=== PATIENT | male | born 1965 | race Caucasian/White ===

== ENCOUNTER 2020-06-20 19:52 | Emergency (ER) | payer MEDICAID, OTHER ==
[2020-06-20] MEDS ORDERED: Lidocaine 1% 10 ML MDV INJECT ONE (20:11)
--- NOTE | 2020-06-20 20:11 | EDM.PDOC ---
ED HPI GENERAL MEDICAL PROBLEM - General Chief Complaint: Laceration Stated Complaint: FINGER LAC Time Seen by Provider: 06/20/20 20:00 Source of Information: Reports: Patient History Limitations: Reports: No Limitations - History of Present Illness INITIAL COMMENTS - FREE TEXT/NARRATIVE: Patient is a 55-year-old male presenting to the emergency department complaints of a laceration to his left index finger. He states he was trying to break some frozen hamburger patties apart with a spatula when the spatula slipped, cutting his finger. He states that his last tetanus vaccination was about 6 years ago and he does not want to update it today as he does not have medical insurance locally. He is [place] here from out of state. Left Finger-Index Pain Score (Numeric/FACES): 4 - Related Data Allergies Allergy/AdvReac Type Severity Reaction Status Date / Time No Known Allergies Allergy Verified 06/20/20 20:07 ED ROS GENERAL - Review of Systems Review Of Systems: Comprehensive ROS is negative, except as noted in HPI. ED EXAM, SKIN/RASH Exam: See Below General Appearance: Alert, WD/WN, No Apparent Distress Respiratory/Chest: No Respiratory Distress, Lungs Clear, Normal Breath Sounds, No Accessory Muscle Use, Chest Non-Tender Cardiovascular: Normal Peripheral Pulses, Regular Rate, Rhythm, No Edema, No Gal lop, No JVD, No Murmur, No Rub Extremities: Other (3.5 cm laceration to the volar aspect of the left index finger within the crease of the DIP joint. Patient has limited movement of the distal portion of his finger.) ED SKIN PROCEDURES - Laceration/Wound Repair Left Ventral Digit - 2nd (Index) Appearance: Muscle Distal NVT: Neuro & Vascular Intact, Other (Likely flexor tendon injury) Course - Vital Signs Last Recorded V/S: Last Vital Signs Temp 98.2 F 06/20/20 20:00 Pulse 88 06/20/20 20:00 Resp 18 06/20/20 20:00 BP 154/102 H 06/20/20 20:00 Pulse Ox 98 06/20/20 20:00 - Orders/Labs/Meds Meds: Medications Discontinued Medications Generic Name Dose Route Start Last Admin Trade Name Freq PRN Reason Stop Dose Admin Lidocaine HCl 10 ml 06/20/20 20:11 06/20/20 20:30 Xylocaine 1% INJECT 06/20/20 20:12 10 ml ONETIME ONE Administration - Re-Assessments/Exams Free Text/Narrative Re-Assessment/Exam: 06/20/20 21:54 Patient is a 55-year-old male presenting to the emergency department with complaints of a 3.5 cm laceration to the volar aspect of his left index finger overlying the crease of the DIP joint. Patient has limited strength to flexion as well as limited movement. Discussed with him that he is likely injured his flexor tendon. Recommended referral to a hand surgeon in [place]. He declined this option as he does not have insurance that is valid in the state of [place]. He is going back to [facility] in 2 weeks and stated that he will seek follow-up for it once he gets there. I did discuss with him that if this is unrepaired, he will likely not have use of the distal aspect of his finger. He stated "that is okay I have 9 more ". Wound was cleansed with sterile saline and Betadine. Closed with sutures. See procedure notes for closure. Patient stated he is up-to-date on his tetanus vaccination. Discharge instructions as documented. Departure - Departure Time of Disposition: 21:56 Disposition: Home, Self-Care 01 Condition: Good Clinical Impression: Laceration - Discharge Information *PRESCRIPTION DRUG MONITORING PROGRAM REVIEWED*: No *COPY OF PRESCRIPTION DRUG MONITORING REPORT IN PATIENT WILDA: No Instructions: Laceration Care, Adult, [id number] Referrals: PCP,Not In Area [Primary Care Provider] - Forms: ED Department Discharge Additional Instructions: You were seen in the emergency department today for 3.5 cm laceration to the distal aspect of your left index finger. YThe wound was cleansed and closed with 6 sutures. These should stay intact for 7-10 days. After that time they may be removed in the clinic by a nurse. Keep the wound clean and dry. Wash with normal soap and water twice daily. Do not submerge the wound in water. Watch for signs of infection including increased redness, swelling, or purulent drainage. If these should occur, you should be seen either in the clinic or in the emergency department as antibiotic treatment may be needed. Discussed, based on my exam it is likely that you have cut the extensor tendon of the finger. Referral to a hand specialist in [place] was offered, however you declined. Recommend follow-up with a hand specialist once you get back to [place]. If you do not have this repaired, you will lose the ability to bend the tip of that finger. Return to the ER as needed. Sepsis Event Note (ED) - Evaluation Sepsis Screening Result: No Definite Risk
== END 2020-06-20 22:00 | disposition home or self-care (01) ==
LOC: JD.ED 19:52
DX: S61.211A Laceration without foreign body of left index finger without damage to nail, initial encounter (principal); W26.8XXA Contact with other sharp object(s), not elsewhere classified, initial encounter
CPT/HCPCS: 12002; 99282; J2001